=== PATIENT | female | born 1985 | race Caucasian/White ===

== ENCOUNTER → 2024-07-23 06:25 | Day surgery (SDC) | payer BC, SELFPAY | LOC: GI 06:25 | PROVIDERS: ATTENDING PHYSICIAN Internal Medicine Gastroenterology | DX: R10.84 Generalized abdominal pain (principal); K64.0 First degree hemorrhoids; K63.89 Other specified diseases of intestine; K22.89 Other specified disease of esophagus; F45.8 Other somatoform disorders; K22.70 Barrett's esophagus without dysplasia | CPT/HCPCS: 45380; 43239; 88305; 88342 ==